=== PATIENT | female | born 1985 | race African-American/Black ===

== ENCOUNTER 2017-01-23 19:49 | Observation (INO) | payer MEDICAID ==
[~2017-01-23] VITALS: Ht 172.7 cm; Wt 108.9 kg
[~2017-01-23 19:49] MED LIST: FERR-63 PO; MULT-1116 PO
[2017-01-23 20:52] LABS: CLARITY URINE CLOUDY (CLEAR); COLOR URINE DARK YELLOW (YELLOW); GLUCOSE URINE NEGATIVE (NEGATIVE); KETONES URINE TRACE (NEGATIVE); LEUKOCYTE ESTERASE URINE 1+ (NEGATIVE); NITRITE URINE NEGATIVE (NEGATIVE); OCCULT BLOOD URINE NEGATIVE (NEGATIVE); PROTEIN URINE 1+ (NEGATIVE); SPECIFIC GRAVITY URINE 1.037 (1.005-1.030)
== END 2017-01-23 21:50 | disposition home or self-care (01) ==
LOC: L&D 19:49
PROVIDERS: ADMIT Obstetrics & Gynecology; ATTEND Obstetrics & Gynecology
DX: O26.893 Other specified pregnancy related conditions, third trimester (principal); R10.30 Lower abdominal pain, unspecified; Z3A.38 38 weeks gestation of pregnancy
CPT/HCPCS: 81001; 99281; G0378; J7120

== ENCOUNTER 2022-03-25 21:12 | Emergency (ER) | payer MEDICAID, OTHER ==
[~2022-03-25] VITALS: Ht 172.7 cm; Wt 96.3 kg
[~2022-03-25 21:12] MED LIST changes: -FERR-63 PO
[2022-03-25 22:04] VITALS: BP 139/96
== END 2022-03-26 02:00 | disposition left against medical advice (07) ==
LOC: ER 21:12
DX: Z53.21 Procedure and treatment not carried out due to patient leaving prior to being seen by health care provider (principal)